=== PATIENT | male | born 1965 | race Caucasian/White ===

== ENCOUNTER → 2022-01-06 12:15 | Outpatient (CLI) | payer OTHER, SELFPAY ==
--- NOTE | ~2022-01-06 | XR_ITS ---
EXAMINATION: XR hip BI wo pelvis INDICATION: Bilateral hip pain TECHNIQUE: Two views of each hip are obtained. COMPARISON: 11/08/2018 FINDINGS: Bone alignment is normal. There is mild osteoarthritis of the hips. No fracture is identifi ed. There are phleboliths of the pelvis. IMPRESSION: 1. Mild osteoarthritis of the hips. Reviewed, dictated and finalized at location A.
--- NOTE | ~2022-01-06 | XR_ITS ---
EXAMINATION: XR lumbar spine min 4V DATE: 01/06/2022 12:56 INDICATION: Low back pain TECHNIQUE: Anteroposterior, lateral, and bilateral oblique views of the lumbar spine, and cone-down l ateral view of the lumbosacral junction were obtained. COMPARISON: None. FINDINGS: There are 2 mm of retrolisthesis of L5 on S1 and 2 mm of anterolisthesis of L4 on L5. There is no fracture. The lumbar vertebral body heights are maintained. There is anterior wedging of the v isualized lower thoracic vertebral bodies. There is mild facet osteoarthritis of the lower lumbar spi ne. A bowel surgical anastomosis is noted in the pelvis. IMPRESSION: 1. Mild lumbar spondylosis without acute findings. Reviewed, dictated and finalized at location A.
== END ==
PROVIDERS: PCP Obstetrics & Gynecology; Visit Provider Chiropractor
DX: M16.0 Bilateral primary osteoarthritis of hip (principal); M47.896 Other spondylosis, lumbar region
CPT/HCPCS: 72110; 73521